=== PATIENT | female | born 1965 | race Hispanic/Latino ===

== ENCOUNTER 2016-07-08 10:27 | Emergency (ER) | payer MEDICARE, MEDICAID ==
[~2016-07-08] VITALS: Ht 160 cm; Wt 90.9 kg
[~2016-07-08 10:27] MED LIST: BENZ1TAB7 PO; CETI10CA PO; FLONASE; HAL5 PO; LORA-303 PO; RISP1TAB3 PO
[2016-07-08 10:32] VITALS: BP 147/90; PULSE 88; RESP 15; O2SAT 96
--- NOTE | 2016-07-08 10:39 | ED.REPORT ---
[facility] Date of Service Jul 08, 2016 ED Provider: Bill Maradiaga DO This patient is a 50 year old female with a history of mental illness and allergies that affect her right eye presenting to the ED complaining of right eye pain onset 2 days ago. Pt. states that "it feels like lightning coming in my right eye". She admits to rhinorrhea, itchy eyes, and watering eyes but denies fever, cough, or headache. She also says that her eyes have been watering "like crazy" but hasn't been scratching or foreign body in her eye that she knows about. She hasn't seen a doctor for this but has been using natural eye drops. She takes haloperidol injections for mental health issues. Nursing Notes Stated Complaint: FLU Chief Complaint: FLU/Cold Symptoms Nursing Notes Reviewed: Yes Allergies: Coded Allergies: No Known Allergies (Unverified Allergy, Unknown, 09/25/15) Scheduled Benztropine Mesylate (Benztropine Mesylate) 1 Mg Tablet 1 MG PO BID Cetirizine-Expunged Drug, Do Not Renew! (Cetirizine-Expunged Drug, Do Not Renew! ) 10 Mg Capsule 10 MG PO DAILY Erythromycin Ophth Oint (Erythromycin Ophth Oint) 3.5 Gm Oint...g. 1 APPL OP QID FLUTICASONE-Expunged Drug, Do Not Renew! (FLONASE-Expunged Drug, Do Not Renew!) 120 Sprays/16 Gm Aero 1-2 SPRAYS NA DAILYP Haloperidol (Haloperidol) 5 Mg Tablet 10 MG PO BID Lorazepam-Expunged Drug, Do Not Renew! (Lorazepam-Expunged Drug, Do Not Renew!) 1 Mg Tab 1 MG PO TID Risperidone (Risperidone) 1 Mg Tablet 1 MG PO BID General Time Seen by Provider: 10:39 Chief Complaint Other (Right eye pain) Hx Obtained From: Patient Arrived By: Walk-in Onset Occurred: 2 days ago Symptom Duration: Since onset Progression Since Onset: Intermittent Recent Healthcare: No recent doctor visit, No recent hospitalization Similar Sx Previous: Yes Past Medical History Past Medical History PTSD psychiatric disorder-reported schizophrenia anxiety UTI Reports: GERD, Hypertension Reports: Depression Past Surgical History unknown Smoking History Never Smoker, Unknown if Ever Smoker Social History Vietnamese speaking, limited due to pt condition Other Social History: Lives with parents, Local resident Ambulatory Status Independent Review of Systems Review of Systems Note: Itching right eye Watering of right eye Basic Review of Systems Psychiatric: Normal thought content Constitutional: Denies: Fever Eyes: Reports: Eye pain right Respiratory: Denies: Non-productive cough Neurologic: Denies: Headache Allergy / Immune: Reports: Rhinorrhea Physical Exam Initial Vital Signs Initial VS: Reviewed Abdomen / GI: Soft Extremities: Vascular intact, Neuro intact, No swelling Psychiatric: Mood/affect normal, Behavior normal, Normal thought content General/Constitutional: Awake, Alert, No acute distress, Well developed Neck: Atraumatic, Supple, No meningismus, Full range of motion Respiratory / Chest: Atraumatic, Breath sounds NL, Breath sounds = bilat, No respiratory distress, No rales, No rhonchi, No wheezing, No retractions Cardiovascular: Heart rate NL, Regular rhythm, Heart sounds NL, No gallop, No murmurs Skin: Atraumatic, Color NL, No rash, Warm, Dry Neurologic: Oriented X3, Speech NL Head / Eyes: Atraumatic, Normocephalic, PERRL, EOMI No tenderness over temporal artery Right eye is not mattered, but watering significantly There is some mild conjunctival erythema of right eye only Lateral penlight eye test shows normal anterior chamber 20/20 both eyes Ocular pressure 16 bilaterally No corneal abrasian bilaterally with fluorescence testing ENT: Atraumatic, Airway patent, Mucous membranes moist, Pharynx NL, Tympanic membs NL Re-Evaluation & MDM Med Decision/Clinical Course 50-year-old female comes in complaining of pain behind her right eye and excessive eye watering for the past 2 days. It does have some itching and feels like there is sand in her eye. With her exam today we have ruled out glaucoma, foreign body, and corneal abrasion. She does have some injected conjunctiva and will benefit from an antibiotic. Her rhinorrhea is likely related to the watering eye. No other concerning symptoms like fever or cough. There are no physical exam symptoms consistent with giant cell arteritis. No temporal artery tenderness. I will have her follow up if worsening. Source of Hx: Old records Re-Evaluation/Progress : Time of Eval: 11:13 Patient Status: Condition improved Re-Evaluation/Progress Note: Pt. rechecked. Also performed eye exam. She states that eye feels lot better after numbing medication. Pain is gone; eye feels really good. Pt. understands and agrees with plan for discharge. All questions have been addressed. Counseled Regarding: Diagnosis, Lab results, Need for follow-up, When/why to return to ED Patient Discharge & Departure Impression: Primary Impression: Acute bacterial conjunctivitis Laterality: bilateral Qualified Code: H10.023 - Other mucopurulent conjunctivitis, bilateral Disposition: Home Discharge Condition All VS Reviewed: Yes Condition: Stable Patient Instructions: Conjunctivitis (ED) Additional Instructions: Your exam here today is reassuring that nothing dangerous is happening with her eyes. I think you have a mild infection which can be treated with the antibiotic I have prescribed. Please use it for the next 5 days. I believe your runny nose is related to all the tearing and your eyes. Follow-up with your primary care provider if not improving. Return to the ER if her symptoms are worsening. Referrals: Shady Moulton MD (PCP) Bane Attestation Portions of this note were transcribed by Lesli Redd. I, Dr. Maradiaga personally performed the history, physical exam and medical decision- making; I reviewed and confirmed the accuracy of the information in the transcribed note. Signed by: Shanice Polanco, 07/08/2016 and 1140. copies to: Shady Moulton MD, Gary R DO Jul 08, 2016 10:39 Concepción Gonzalez [Lesli] Jul 08, 2016 11:03 YUSRA REDD Jul 08, 2016 11:08 transcribed note. Signed by: Shanice Polanco, 07/08/2016 and 1140. copies to: Shady Moulton MD, Gary R DO Jul 08, 2016 10:39 Concepción Gonzalez [Lesli] Jul 08, 2016 11:03 YUSRA REDD Jul 08, 2016 11:08
[2016-07-08] MEDS ORDERED: 0.9% Sodium Chloride Inhalation Solution RIGHT_EYE ONE (10:55)
[2016-07-08] MEDS ORDERED: Tetracaine 0.5% 4 mL Ophthalmic Solution RIGHT_EYE ONE (10:55)
[2016-07-08] MEDS ORDERED: Fluorescein 0.6 mg Ophthalmic Strip RIGHT_EYE ONE (10:55)
[2016-07-08] MEDS ORDERED: ERYT1OIN7 OP (11:27)
== END 2016-07-08 11:45 | disposition home or self-care (01) ==
LOC: SED 10:27
DX: H10.023 Other mucopurulent conjunctivitis, bilateral (principal); K21.9 Gastro-esophageal reflux disease without esophagitis; I10 Essential (primary) hypertension; Z86.59 Personal history of other mental and behavioral disorders; Z87.898 Personal history of other specified conditions